=== PATIENT | female | born 1985 | race Caucasian/White ===

== ENCOUNTER 2022-11-07 08:55 | Outpatient (CLI) | payer OTHER, SELFPAY | END 2022-11-07 08:56 | disposition home or self-care (01) | PROVIDERS: PCP Physician Assistant Medical; Visit Provider Physician Assistant Medical | DX: Z00.00 Encounter for general adult medical examination without abnormal findings (principal); Z13.6 Encounter for screening for cardiovascular disorders | CPT/HCPCS: 80053; 80061 ==

== ENCOUNTER 2025-08-22 08:31 | Outpatient (CLI) | payer OTHER, SELFPAY ==
[2025-08-22 15:10] LABS: Chlamydia DNA Amplified* NOT DETECTED (No Detected); GC DNA Amplified* NOT DETECTED (No Detected)
[2025-08-24 20:49] LABS: HPV Source Cervix
[2025-08-27 10:44] LABS: Pap Test Digital Imaging Done
== END 2025-08-22 08:32 | disposition home or self-care (01) ==
PROVIDERS: PCP Physician Assistant Medical; Visit Provider Physician Assistant Medical
DX: Z00.00 Encounter for general adult medical examination without abnormal findings (principal); R21 Rash and other nonspecific skin eruption
CPT/HCPCS: 80061; 82947; 84443; 87491; 87591; 87624; 87625; 88141; 88142; 88175